=== PATIENT | female | born 1945 | race Caucasian/White ===

== ENCOUNTER → 2022-08-24 06:10 | Outpatient (REF) | payer MEDICARE, MEDICAID, SELFPAY ==
[2022-08-24 09:11] LABS: Hematocrit 33.8 % (37-47); Hemoglobin 10.9 g/dL (12.0-15.0); Mean Corp Hgb Conc 32.2 g/dL (32-36); Mean Corpuscular Hgb 33.1 pg (27.0-32.0); Mean Corpuscular Volume 102.7 fL (81-99); Mean Platelet Vol. 10.5 fl (6.2-12.0); Platelet Count 235 K/mm3 (150-450); RBC Distribution Width CV 13.2 % (11.6-14.6); RBC Distribution Width SD 50.2 fl (35.1-43.9); Red Blood Count 3.29 M/mm3 (4.2-5.4); White Blood Count 8.3 K/mm3 (4.4-11.0)
[2022-08-24 09:55] LABS: ALB/GLOB Ratio 0.7 RATIO (0.9-2.4); AST(SGOT) 16 U/L (15-37); Alanine Aminotransfer ALT/SGPT 19 U/L (13-56); Albumin, Serum 2.9 g/dL (3.2-5.0); Alkaline Phosphatase 70 U/L (45-117); Anion Gap 7 (5-15); BUN 47 mg/dL (7-18); BUN/Creat Ratio 19.7 RATIO (10-20); Calcium,Total 8.9 mg/dL (8.5-10.1); Chloride 107 mmol/L (98-107); Cholesterol 238 mg/dL (200); Creatinine, Serum 2.39 mg/dL (0.55-1.02); EST Glomerular Filtration Rate 21 mL/min (>60); Est Glom Filt Rate - Afr Amer 25 mL/min (>60); Glucose 138 mg/dL (74-106); High Density Lipoprotein 51 mg/dL; Potassium 3.8 mmol/L (3.5-5.1); Protein, Total 6.9 g/dL (6.4-8.2); Sodium Level 139 mmol/L (136-145); Triglycerides 513 mg/dL
[2022-08-24 11:26] LABS: Hemoglobin A1c 7.3 % (3.8-5.6)
== END ==
LOC: OLS.SW 06:10
PROVIDERS: Visit Provider Family Medicine
DX: R79.9 Abnormal finding of blood chemistry, unspecified (principal); Z13.228 Encounter for screening for other metabolic disorders
CPT/HCPCS: 36415; 80053; 80061; 83036; 85027

== ENCOUNTER → 2022-09-05 04:00 | Outpatient (REF) | payer MEDICARE, MEDICAID, SELFPAY ==
[2022-09-05 09:28] LABS: Vitamin D,25 Hydroxy 27.4 ng/mL
== END ==
LOC: OLS.SW 04:00
PROVIDERS: Referring Provider Family Medicine; Visit Provider Family Medicine
DX: F32.A Depression, unspecified (principal); Z79.899 Other long term (current) drug therapy
CPT/HCPCS: 36415; 82306

== ENCOUNTER 2022-11-02 13:04 | Emergency (ER) | payer MEDICARE, MEDICAID, SELFPAY ==
[2022-11-02 13:09] VITALS: BP 162/57; PULSE 60; RESP 13; TEMP 36.6; O2SAT 95; BMI 25.2
--- NOTE | 2022-11-02 13:51 | ED.RN ---
PT REFUSES PO PAIN MEDICATION. STATES UNABLE TO MOVE RT HIP/LEG FOR X-RAY AND WOULD LIKE IV OR IM PAIN MEDICATION
--- NOTE | 2022-11-02 13:56 | EDS_ITS ---
HPI History of Present Illness Chief Complaint: Lower Extremity Injury Narrative Narrative: 77-year-old female presenting with right hip pain. She states she was trying to get into her bed last evening and slipped and fell injuring her right hip. She was unable to get up but was able to scoot around. She states that at baseline she had trouble getting up. She states that prior to this she was in her normal state health. Eating and drinking normally. Making normal urine and stool. No fevers or chills. She denies any headache, lightheadedness, dizziness. She did not have any chest pain or shortness of breath. [facility] Medical History CHF (congestive heart failure) Chronic pain Diabetes HTN (hypertension) Pacemaker Pulmonary fibrosis Allergy/AdvReac Type Severity Reaction Status Date / Time METFORMIN Allergy Other Uncoded 11/02/22 13:09 Family History unable to obtain Social History Smoking Status: Never smoker ROS ROS ED Constitutional Constitutional ED: Denies chills, fever(s) or sweats Eyes Eyes: Denies blurry vision or change in vision ENT ENT ED: Denies ear pain or sore throat Cardiovascular Cardiovascular: Denies chest pain, palpitations or racing heartbeat Respiratory/Chest Respiratory/Chest: Denies cough, dyspnea or sputum Gastrointestinal Gastrointestinal: Denies abdominal pain, constipation, diarrhea, nausea or vomiting Genitourinary Genitourinary ED: Denies dysuria, hematuria or urinary frequency Musculoskeletal Musculoskeletal: Denies arthralgias, myalgias or neck pain Integumentary Denies abscess, Abrasions or rash Neurologic Neurologic: Denies headache(s), paresthesias or weakness Psychiatric Psychiatric: Denies anxiety, depression, suicidal ideation or suicidal thoughts Endocrine Endocrinology: Denies polydipsia or polyuria EXAM Physical Exam Const Vital Signs: 11/02/22 13:09 Temperature 97.9 F Temperature Source Temporal Pulse Rate 60 Respiratory Rate 13 Blood Pressure 162/57 H Blood Pressure Mean 92 Pulse Ox 95 Oxygen Delivery Method Room Air Discharge Plan Triage Chief Complaint: Lower Extremity Injury ED Provider: Jatin Montes Dx/Rx/DC Orders Primary Care Provider: Care Physician,No Primary Referrals: Care Physician,No Primary [Primary Care Provider] -
--- NOTE | 2022-11-02 13:56 | ED.VIS.LOWEX ---
HPI History of Present Illness Chief Complaint: Lower Extremity Injury Narrative Narrative: 77-year-old female presenting with right hip pain. She states she was trying to get into her bed last evening and slipped and fell injuring her right hip. She was unable to get up but was able to scoot around. She states that at baseline she had trouble getting up. She states that prior to this she was in her normal state health. Eating and drinking normally. Making normal urine and stool. No fevers or chills. She denies any headache, lightheadedness, dizziness. She did not have any chest pain or shortness of breath. [facility] Medical History CHF (congestive heart failure) Chronic pain Diabetes HTN (hypertension) Pacemaker Pulmonary fibrosis Home Medications oxycodone-acetaminophen 5 mg-325 mg tablet (Percocet) 1 tab PO Q8H PRN pain 3 days #12 tabs 11/02/22 [Rx Last Taken Unknown] Allergy/AdvReac Type Severity Reaction Status Date / Time METFORMIN Allergy Other Uncoded 11/02/22 13:09 Family History unable to obtain Social History Smoking Status: Never smoker ROS ROS ED Constitutional Constitutional ED: Denies chills, fever(s) or sweats Eyes Eyes: Denies blurry vision or change in vision ENT ENT ED: Denies ear pain or sore throat Cardiovascular Cardiovascular: Denies chest pain, palpitations or racing heartbeat Respiratory/Chest Respiratory/Chest: Denies cough, dyspnea or sputum Gastrointestinal Gastrointestinal: Denies abdominal pain, constipation, diarrhea, nausea or vomiting Genitourinary Genitourinary ED: Denies dysuria, hematuria or urinary frequency Musculoskeletal Musculoskeletal: Denies arthralgias, myalgias or neck pain Integumentary Denies abscess, Abrasions or rash Neurologic Neurologic: Denies headache(s), paresthesias or weakness Psychiatric Psychiatric: Denies anxiety, depression, suicidal ideation or suicidal thoughts Endocrine Endocrinology: Denies polydipsia or polyuria EXAM Physical Exam Const Vital Signs: 11/02/22 13:09 11/02/22 14:30 Temperature 97.9 F Temperature Source Temporal Pulse Rate 60 60 Respiratory Rate 13 16 Blood Pressure 162/57 H 166/62 H Blood Pressure Mean 92 96 Pulse Ox 95 98 Oxygen Delivery Method Room Air Room Air MDM MDM MDM Narrative Medical decision making narrative: 77-year-old female presenting with right hip pain after a fall last evening. She was unable to get up and walk. Initially she was refusing Percocet for pain and wanted a shot of morphine but after discussing this with her she gets hypoxic when she has morphine so since she would not take a pill I gave her 1 dose of IM morphine 1 mg and she tolerated this okay. Obtained an x-ray of the right hip which shows an avulsion fracture of the greater trochanter and proximal femur on my interpretation. Radiology interprets this and agrees. I discussed with Dr. Sands and he states this is nonoperative and recommended try to get the patient ambulate and if she cannot ambulate he recommended admission for placement at a longterm. Patient still refusing to ambulate after 1 mg of morphine so we did start an IV line. Obtained a CBC and BMP which were unremarkable at baseline for her. Patient was given 2 mg of IV morphine and was able to ambulate with a walker at this point. Walking with a walker is her baseline. We will give her a short prescription for Percocet. She was given follow-up with orthopedics. Return precautions were discussed. Impression: 1. Mechanical fall 2. Avulsion fracture right greater trochanter 3. Avulsion fracture right proximal femur Lab Data Attestation: I reviewed the patient's lab results. Labs: Laboratory Results - last 24 hr 11/02/22 15:25 WBC 9.7 RBC 2.92 L Hgb 9.7 L Hct 29.6 L MCV 101.4 H MCH 33.2 H MCHC 32.8 RDW Std Deviation 50.1 H RDW Coeff of Wilma 13.4 Plt Count 217 MPV 10.0 Immature Gran % (Auto) 0.300 Neut % (Auto) 60.5 Lymph % (Auto) 29.7 Atkinson % (Auto) 8.7 Eos % (Auto) 0.4 Baso % (Auto) 0.4 Absolute Neuts (auto) 5.9 Absolute Lymphs (auto) 2.88 Nucleated RBC % 0 Sodium 136 Potassium 3.4 L Chloride 102 Carbon Dioxide 27.0 Anion Gap 7 BUN 45 H Creatinine 2.50 H Estim Creat Clear Calc 16.84 Est GFR (MDRD) Af Amer 24 L Est GFR (MDRD) Non-Af 20 L BUN/Creatinine Ratio 18.0 Glucose 174 H Calcium 8.5 Radiography Diagnostic Testing: Clinical Impression(s) from Imaging Studies Hip/Pelvis X-Ray 11/02/22 14:05 IMPRESSION: Avulsion fracture of the greater trochanter of the proximal femur. Status post right hip replacement. Electronically Signed: Duane Felipe MD at 14:44 EDT , Discharge Plan Triage Chief Complaint: Lower Extremity Injury ED Provider: Jatin Montes Dx/Rx/DC Orders Instructions: ED Fracture, Lower Extremity Prescriptions: New oxycodone-acetaminophen [Percocet] 5-325 mg tablet 1 tab PO Q8H PRN (Reason: pain) 3 Days Qty: 12 0RF Primary Care Provider: Care Physician,No Primary Referrals: Pedro Sands DO [Med Staff - Active Staff] - 3-5 Days Care Physician,No Primary [Primary Care Provider] - Disposition Disposition: Home, Self Care
[2022-11-02] MEDS: Morphine 2 MG/ML Syringe 1 MG IM (13:59)
[2022-11-02] MEDS: Ondansetron ODT 4 MG Tablet PO (14:00)
--- NOTE | 2022-11-02 14:05 | RAD_ITS ---
STUDY: X-RAY - PELVIS AND RIGHT HIP REASON FOR EXAM: Female, 77 years old. Right hip pain following a fall. TECHNIQUE: 3 views of the pelvis and hip. COMPARISON: None. FINDINGS: Moderate amount of fecal material is seen in the colon. There are multiple calcified phleboliths. There is narrowing with cortical sclerosis and osteophyte formation of the sacroiliac joint consistent with degenerative osteoarthritic changes. Normal bilateral superior and inferior pubic rami. There are degenerative changes of the pubic symphysis with articular narrowing and sclerosis. Normal bilateral ischial tuberosities. The patient is status post right total hip replacement. There is evidence of an avulsion fracture of the greater trochanter of the proximal femur. Degenerative changes of the lumbar spine. RAD/HIP, UNI W/ Pelvis 2-3 Views IMPRESSION: Avulsion fracture of the greater trochanter of the proximal femur. Status post right hip replacement. Electronically Signed: Duane Felipe MD at 14:44 EDT ,
[2022-11-02 14:30] VITALS: BP 166/62; PULSE 60; RESP 16; O2SAT 98
[2022-11-02] MEDS: Morphine 2 MG/ML Syringe IV (15:30)
[2022-11-02 15:42] LABS: Absolute Lymphocyte Count 2.88 X10^3/uL (0.83-4.51); Absolute Neutrophil Count 5.9 X10^3/uL (2.0-7.7); Basophil# 0.04 X10^3/uL; Basophil% 0.4 % (0-1); Eosinophil# 0.04 X10^3/uL; Eosinophils% 0.4 % (0-5); Hematocrit 29.6 % (37-47); Hemoglobin 9.7 g/dL (12.0-15.0); Lymphocyte # 2.88 X10^3/ul (0.83-4.51); Lymphocyte % 29.7 % (19-41); Mean Corp Hgb Conc 32.8 g/dL (32-36); Mean Corpuscular Hgb 33.2 pg (27.0-32.0); Mean Corpuscular Volume 101.4 fL (81-99); Monocyte# 0.84 X10^3/uL; Monocyte% 8.7 % (0-10); NRBC Flagged by Analyzer 0 % (0-5); Neutrophil # 5.86 X10^3/uL (2.7-7.7); Neutrophil % 60.5 % (47-70); Platelet Count 217 K/mm3 (150-450); RBC Distribution Width CV 13.4 % (11.6-14.6); RBC Distribution Width SD 50.1 fl (35.1-43.9); Red Blood Count 2.92 M/mm3 (4.2-5.4); White Blood Count 9.7 K/mm3 (4.4-11.0)
[2022-11-02 15:56] LABS: Anion Gap 7 (5-15); BUN 45 mg/dL (7-18); Calcium,Total 8.5 mg/dL (8.5-10.1); Chloride 102 mmol/L (98-107); EST Glomerular Filtration Rate 20 mL/min (>60); Est Glom Filt Rate - Afr Amer 24 mL/min (>60); Estimated Creatinine Clearance 16.84 ml/min; Glucose 174 mg/dL (74-106); Potassium 3.4 mmol/L (3.5-5.1); Sodium Level 136 mmol/L (136-145)
[2022-11-02 16:39] VITALS: BP 135/75; PULSE 88; RESP 16; O2SAT 99
--- NOTE | 2022-11-02 16:41 | NURSING ---
CALLED FOR [facility]. ETA IS 30 MIN
== END 2022-11-02 17:19 | disposition home or self-care (01) ==
PROVIDERS: Emergency Provider Student in an Organized Health Care Education/Training Program; Visit Provider Student in an Organized Health Care Education/Training Program
DX: S72.111A Displaced fracture of greater trochanter of right femur, initial encounter for closed fracture (principal); S72.001A Fracture of unspecified part of neck of right femur, initial encounter for closed fracture; I11.0 Hypertensive heart disease with heart failure; I50.9 Heart failure, unspecified; E11.9 Type 2 diabetes mellitus without complications; W18.39XA Other fall on same level, initial encounter
CPT/HCPCS: 73502; 80048; 85025; 96372; 96374; 99285; A4216

== ENCOUNTER → 2022-11-07 04:46 | Outpatient (REF) | payer MEDICARE, MEDICAID, SELFPAY ==
[2022-11-07 08:26] LABS: Hematocrit 24.5 % (37-47); Hemoglobin 7.7 g/dL (12.0-15.0); Mean Corp Hgb Conc 31.4 g/dL (32-36); Mean Corpuscular Hgb 33.6 pg (27.0-32.0); Mean Platelet Vol. 10.1 fl (6.2-12.0); Platelet Count 274 K/mm3 (150-450); RBC Distribution Width CV 13.7 % (11.6-14.6); RBC Distribution Width SD 53.3 fl (35.1-43.9); Red Blood Count 2.29 M/mm3 (4.2-5.4); White Blood Count 7.8 K/mm3 (4.4-11.0)
[2022-11-07 08:34] LABS: Anion Gap 5 (5-15); BUN 54 mg/dL (7-18); BUN/Creat Ratio 18.9 RATIO (10-20); Calcium,Total 8.4 mg/dL (8.5-10.1); Chloride 101 mmol/L (98-107); Creatinine, Serum 2.86 mg/dL (0.55-1.02); EST Glomerular Filtration Rate 17 mL/min (>60); Est Glom Filt Rate - Afr Amer 21 mL/min (>60); Glucose 107 mg/dL (74-106); Potassium 3.6 mmol/L (3.5-5.1); Sodium Level 136 mmol/L (136-145)
[2022-11-07 08:42] LABS: Scan Indicated on CBC? Y/N NO
== END ==
LOC: OLS.SW 04:46
PROVIDERS: Referring Provider Family Medicine; Visit Provider Family Medicine
DX: E11.22 Type 2 diabetes mellitus with diabetic chronic kidney disease (principal); N18.4 Chronic kidney disease, stage 4 (severe); J84.10 Pulmonary fibrosis, unspecified; I13.0 Hypertensive heart and chronic kidney disease with heart failure and stage 1 through stage 4 chronic kidney disease, or unspecified chronic kidney disease
CPT/HCPCS: 36415; 80048; 85027

== ENCOUNTER → 2022-11-09 05:00 | Outpatient (REF) | payer MEDICARE, MEDICAID, SELFPAY ==
[2022-11-09 09:29] LABS: Hematocrit 24.2 % (37-47); Hemoglobin 7.9 g/dL (12.0-15.0); Mean Corp Hgb Conc 32.6 g/dL (32-36); Mean Corpuscular Hgb 33.8 pg (27.0-32.0); Mean Corpuscular Volume 103.4 fL (81-99); Mean Platelet Vol. 9.9 fl (6.2-12.0); Platelet Count 313 K/mm3 (150-450); RBC Distribution Width CV 14.4 % (11.6-14.6); RBC Distribution Width SD 50.8 fl (35.1-43.9); Red Blood Count 2.34 M/mm3 (4.2-5.4); White Blood Count 7.7 K/mm3 (4.4-11.0)
== END ==
LOC: OLS.SW 05:00
PROVIDERS: Visit Provider Family Medicine
DX: D64.9 Anemia, unspecified (principal)
CPT/HCPCS: 36415; 85027

== ENCOUNTER 2022-12-27 09:10 | Emergency (ER) | payer MEDICARE, MEDICAID, SELFPAY ==
[2022-12-27 09:12] VITALS: BP 165/74; PULSE 64; RESP 18; TEMP 36.4; O2SAT 98; BMI 26.1
[2022-12-27 09:21] VITALS: BMI 26.1
--- NOTE | 2022-12-27 09:22 | RAD_ITS ---
INDICATION: cough weakness EXAMINATION/TECHNIQUE: X-RAY - XR Chest 1 View COMPARISON: FINDINGS: LINES/DEVICES: Status post arthroplasty left shoulder reverse arthroplasty right shoulder. Sequential pacemaker with leads projecting over right atrium and right ventricle. LUNGS: Mild bibasilar fibrosis. MEDIASTINUM AND CARDIOVASCULAR STRUCTURES: Mild cardiomegaly. Moderately tortuous descending aorta. BONES AND SOFT TISSUES: Unremarkable. RAD/Chest 1 View (Portable) IMPRESSION: Mild bibasilar fibrosis. Cardiomegaly. Pacemaker. Status post reverse arthroplasty right shoulder and status post arthroplasty left shoulder. Electronically Signed: Landon Pinon MD at 10:24 EDT ,
--- NOTE | 2022-12-27 09:22 | EKG12_ITS ---
Test Reason : neuro Blood Pressure : / mmHG Vent. Rate : 060 BPM Atrial Rate : 060 BPM P-R Int : 000 ms QRS Dur : 126 ms QT Int : 432 ms P-R-T Axes : -32 -30 119 degrees QTc Int : 432 ms Atrial-paced rhythm Left axis deviation Left ventricular hypertrophy with QRS widening and repolarization abnormality ( R in aVL , Tam pr oduct ) Cannot rule out Septal infarct , age undetermined Abnormal ECG Confirmed by KATLYN EVERETT, RIGO ([id number]), index editor BRAD ABEL ([id number]) on 12/28/2022 10:56:49 AM Referred By: Confirmed By:RIGO POTTS MD
--- NOTE | 2022-12-27 09:23 | EX.ED.DYSGE1 ---
HPI History of Present Illness Chief Complaint: Neuro S/Sx Informant: patient, EMS and SNF (staff report via nursing) Narrative Narrative: 77-year-old female in nursing home facility has been generally weak for the last 2 or 3 days. The day before yesterday, she was attempting to go to the bathroom and the aide/nurse that was helping her according to the patient was not strong enough to do so, she ended up falling down to her buttocks as she was trying to get on the toilet. She denies any injury and she denies hitting her head. She states she was just weak all over. This is partly why she is an inpatient and nursing home, but she has been feeling a little worse since that incident because she states the aide was pulling on her extremities and creating pain, her arms and legs were sore all day yesterday and she slept a lot more than usual, then today when she woke up her mouth was dry she was having trouble talking at that time because of that, staff had said that she was okay at breakfast but when they returned and found her apparently having dysarthria they called EMS to have her evaluated for possible stroke. The patient states she did not have a headache like nursing reported, she did not have any vision disturbance and she did not have any trouble speaking she just needed a sip of water and after that she has been able to do speak without any difficulty. She denies having any symptoms today other than feeling sore all over like she did yesterday from that aide trying to move me. [facility] Medical History Anxiety disorder, unspecified Atherosclerotic heart disease of [place] coronary artery without angina pectoris Atypical atrial flutter CHF (congestive heart failure) Chronic combined systolic (congestive) and diastolic (congestive) heart failure Chronic pain Depression, unspecified Diabetes Displaced fracture of greater trochanter of right femur, subsequent encounter for closed fracture with routine healing Gout, unspecified HTN (hypertension) Hyperlipidemia, unspecified Pacemaker Pulmonary fibrosis Pulmonary fibrosis, unspecified Home Medications albuterol sulfate 90 mcg/actuation breath activated powder inhaler 2 inh inhalation Q4H PRN shortness of breath 12/27/22 [History Last Taken Unknown] allopurinol 100 mg tablet 100 mg PO DAILY 12/27/22 [History Last Taken Unknown] amlodipine 5 mg tablet 5 mg PO DAILY 12/27/22 [History Last Taken Unknown] aspirin 81 mg tablet,delayed release (Adult Low Dose Aspirin) 81 mg PO DAILY 12/27/22 [History Last Taken Unknown] cetirizine 10 mg tablet 10 mg PO DAILY PRN allergy symptoms 12/27/22 [History Last Taken Unknown] empagliflozin 10 mg tablet (Jardiance) 10 mg PO DAILY 12/27/22 [History Last Taken Unknown] furosemide 20 mg tablet 20 mg PO DAILY 12/27/22 [History Last Taken Unknown] hydralazine 50 mg tablet 50 mg PO TID 12/27/22 [History Last Taken Unknown] linagliptin 5 mg tablet (Tradjenta) 5 mg PO DAILY 12/27/22 [History Last Taken Unknown] metoprolol tartrate 25 mg tablet 25 mg PO BID 12/27/22 [History Last Taken Unknown] mirabegron 25 mg tablet,extended release 24 hr (Myrbetriq) 25 mg PO DAILY 12/27/22 [History Last Taken Unknown] multivitamin 1 tab PO DAILY 12/27/22 [History Last Taken Unknown] ondansetron HCl 4 mg tablet 4 mg PO Q8H PRN nausea and vomiting 12/27/22 [History Last Taken Unknown] paroxetine HCl 30 mg tablet 30 mg PO DAILY 12/27/22 [History Last Taken Unknown] potassium chloride 20 mEq tablet,extended release 20 meq PO BID #6 tabs 12/27/22 [Rx Last Taken Unknown] Allergy/AdvReac Type Severity Reaction Status Date / Time morphine Allergy Unknown PT UNSURE Verified 12/27/22 09:15 OF REACTION METFORMIN Allergy Other Uncoded 11/02/22 13:09 Family History unable to obtain Social History Smoking Status: Never smoker ROS ROS ED Constitutional Constitutional ED: Reports body ache(s), fatigue and weakness; Denies chills or fever(s) Eyes Eyes: Denies change in vision or diplopia ENT ENT ED: Denies rhinorrhea or sore throat Cardiovascular Cardiovascular: Denies chest pain or palpitations Respiratory/Chest Respiratory/Chest: Reports cough and other Details: Chronic nonproductive cough due to pulmonary fibrosis unchanged recently ; Denies dyspnea Gastrointestinal Gastrointestinal: Denies abdominal pain, diarrhea, nausea or vomiting Genitourinary Genitourinary ED: Denies dysuria or hematuria Musculoskeletal Musculoskeletal: Denies back pain or neck pain Integumentary Denies abscess or rash Neurologic Neurologic: Denies headache(s), paresthesias or weakness Psychiatric Psychiatric: Denies anxiety or suicidal thoughts EXAM Physical Exam Const Vital Signs: 12/27/22 09:12 Temperature 97.5 F L Temperature Source Temporal Pulse Rate 64 Respiratory Rate 18 Blood Pressure 165/74 H Blood Pressure Mean 104 Pulse Ox 98 Oxygen Delivery Method Room Air Positive well nourished and well developed General Appearance ED: well developed and NAD HEENT Reports moist mucous membranes normocephalic and atraumatic Eyes PERRL and EOMs intact bilaterally Neck full ROM, no lymphadenopathy and supple Resp normal respiratory effort and clear to auscultation bilaterally Cardio regular rate, regular rhythm and no murmurs Rate: Negative for tachycardic GI non-tender and non-distended Auscultation: normoactive bowel sounds Palpation: soft Back/Spine no CVA tenderness General Back: other FROM Extremity normal to inspection General Extremety ED: Negative for edema, pulses abnormal or tenderness General Extremity: Negative for edema or pulses abnormal Neuro oriented x3, CN's II-XII intact bilaterally and no sensory deficits noted Neuro Narrative: Normal speech no dysarthria no aphasia. Generally symmetrically weak but able to hold all 4 extremities off of the bed for the full amount of time. NIHSS 0. Sensorium / Orientation: awake and alert Motor Exam: strength 5/5 throughout Skin no rashes or lesions noted and no wounds MDM MDM MDM Narrative Medical decision making narrative: I do not think stroke/TIA is in the differential here. Patient tells reliable history, blood pressure is a little up in the 160s and has not had her morning blood pressure medications yet. She is DNR comfort care only. Patient states she does not want a work-up for stroke because she is not having 1. I recommended performing testing looking for possible reason for her fatigue and generalized weakness and she was amenable to that. Differential here includes infections including pulmonary, urinary, COVID-19, as well as metabolic disturbances, myocardial infarction, transient dysrhythmias, anemia. Labs are consistent with chronic kidney disease, a little better than her usual, a little more on the dry side with prerenal azotemia worse than usual, and hypokalemia all likely related to her diuretic use without potassium supplementation or a potassium sparing diuretic according to the medication list available right now. No sign of pneumonia or urine infection, I think the low potassium is probably the issue here so I will send her back on a prescription for several days worth, and follow-up so that she can be reevaluated and have her medications reevaluated. When patient first arrived she had to urinate and soaked her bed, so we were unable to get a urine sample but she has had no urinary symptoms and was not able to urinate again while here, so I do not think she needs to be cathed or wait for that since we have an alternative reason for her weakness. Lab Data Attestation: I reviewed the patient's lab results. Labs: Laboratory Results - last 24 hr 12/27/22 09:19 WBC 8.8 RBC 3.34 L Hgb 11.0 L Hct 34.4 L MCV 103.0 H MCH 32.9 H MCHC 32.0 RDW Std Deviation 52.8 H RDW Coeff of Wilma 13.9 Plt Count 305 MPV 9.5 Immature Gran % (Auto) 0.500 Neut % (Auto) 65.3 Lymph % (Auto) 22.6 Carter % (Auto) 7.9 Eos % (Auto) 3.1 Baso % (Auto) 0.6 Absolute Neuts (auto) 5.7 Absolute Lymphs (auto) 1.98 Nucleated RBC % 0 Sodium 135 L Potassium 3.3 L Chloride 98 Carbon Dioxide 29.0 Anion Gap 8 BUN 58 H Creatinine 2.24 H Estim Creat Clear Calc 19.46 Est GFR (MDRD) Af Amer 27 L Est GFR (MDRD) Non-Af 23 L BUN/Creatinine Ratio 25.9 H Glucose 167 H Calcium 8.9 Troponin I High Sens 26 Radiography Chest X-Ray - ED: 1 View, Read by ED Physician, No Acute Disease, Chronic Changes and No Infiltrates Diagnostic Testing: Clinical Impression(s) from Imaging Studies Chest X-Ray 12/27/22 09:22 IMPRESSION: Mild bibasilar fibrosis. Cardiomegaly. Pacemaker. Status post reverse arthroplasty right shoulder and status post arthroplasty left shoulder. Electronically Signed: Landon Pinon MD at 10:24 EDT , Rhythm Strip Rhythm Strip: paced Rate: 60 Ectopy: None EKG Initial EKG: Attestation: I personally reviewed and interpreted this EKG as follows: Interpretation: No Acute Injury Pattern, Paced (Atrial pacing with barely wide QRS and left axis) and Inverted T-Waves (lat) Prior: No Prior Discharge Plan Triage Chief Complaint: Neuro S/Sx ED Provider: Teddy Carranza Dx/Rx/DC Orders Clinical Impression: Hypokalemia due to excessive renal loss of potassium, Mild dehydration, CKD (chronic kidney disease) Instructions: Hypokalemia Dc Prescriptions: New potassium chloride 20 mEq tablet extended release 20 meq PO BID Qty: 6 0RF No Action albuterol sulfate 90 mcg/actuation aerosol powdr breath activated 2 inh inhalation Q4H PRN (Reason: shortness of breath) allopurinol 100 mg tablet 100 mg PO DAILY amlodipine 5 mg tablet 5 mg PO DAILY aspirin [Adult Low Dose Aspirin] 81 mg tablet,delayed release (DR/EC) 81 mg PO DAILY cetirizine 10 mg tablet 10 mg PO DAILY PRN (Reason: allergy symptoms) furosemide 20 mg tablet 20 mg PO DAILY hydralazine 50 mg tablet 50 mg PO TID Jardiance 10 mg tablet 10 mg PO DAILY Tradjenta 5 mg tablet 5 mg PO DAILY metoprolol tartrate 25 mg tablet 25 mg PO BID multivitamin Tablet 1 tab PO DAILY Myrbetriq 25 mg tablet extended release 24 hr 25 mg PO DAILY ondansetron HCl 4 mg tablet 4 mg PO Q8H PRN (Reason: nausea and vomiting) paroxetine HCl 30 mg tablet 30 mg PO DAILY Primary Care Provider: Washington Langford Referrals: Washington Langford MD [Primary Care Provider] - 2 Days (for reevaluation clinically, potassium level, and poss addition of a potassium-sparing diuretic.) Disposition Disposition: Intermediate Facility Discharge Location: [facility]
--- NOTE | 2022-12-27 09:24 | NURSING ---
NO OLD EKGS
[2022-12-27 09:38] LABS: Absolute Lymphocyte Count 1.98 X10^3/uL (0.83-4.51); Absolute Neutrophil Count 5.7 X10^3/uL (2.0-7.7); Basophil# 0.05 X10^3/uL; Basophil% 0.6 % (0-1); Eosinophil# 0.27 X10^3/uL; Eosinophils% 3.1 % (0-5); Hematocrit 34.4 % (37-47); Lymphocyte # 1.98 X10^3/ul (0.83-4.51); Lymphocyte % 22.6 % (19-41); Mean Corpuscular Hgb 32.9 pg (27.0-32.0); Mean Platelet Vol. 9.5 fl (6.2-12.0); Monocyte# 0.69 X10^3/uL; Monocyte% 7.9 % (0-10); NRBC Flagged by Analyzer 0 % (0-5); Neutrophil # 5.74 X10^3/uL (2.7-7.7); Neutrophil % 65.3 % (47-70); Platelet Count 305 K/mm3 (150-450); RBC Distribution Width CV 13.9 % (11.6-14.6); RBC Distribution Width SD 52.8 fl (35.1-43.9); Red Blood Count 3.34 M/mm3 (4.2-5.4); White Blood Count 8.8 K/mm3 (4.4-11.0)
[2022-12-27 09:58] LABS: Anion Gap 8 (5-15); BUN 58 mg/dL (7-18); BUN/Creat Ratio 25.9 RATIO (10-20); Calcium,Total 8.9 mg/dL (8.5-10.1); Chloride 98 mmol/L (98-107); Creatinine, Serum 2.24 mg/dL (0.55-1.02); EST Glomerular Filtration Rate 23 mL/min (>60); Est Glom Filt Rate - Afr Amer 27 mL/min (>60); Estimated Creatinine Clearance 19.46 ml/min; Glucose 167 mg/dL (74-106); Potassium 3.3 mmol/L (3.5-5.1); Sodium Level 135 mmol/L (136-145); Troponin-I HS 26 pg/mL (3.0-54.0)
[2022-12-27] MEDS: 0.9% Normal Saline (1000mL) 1,000 ML 150 ML IV (10:07)
[2022-12-27 11:10] VITALS: BP 166/76; PULSE 64; RESP 14; TEMP 36.4; O2SAT 99
[2022-12-27] MEDS: Potassium Chloride Oral Tablet 20 MEQ 40 MEQ PO (11:46)
--- NOTE | 2022-12-27 11:47 | NURSING ---
CALLED [facility], ETA IS 30 MIN
== END 2022-12-27 13:13 | disposition skilled nursing facility (03) ==
PROVIDERS: Emergency Provider Emergency Medicine; PCP Family Medicine; Visit Provider Emergency Medicine
DX: E86.0 Dehydration (principal); I13.0 Hypertensive heart and chronic kidney disease with heart failure and stage 1 through stage 4 chronic kidney disease, or unspecified chronic kidney disease; I50.42 Chronic combined systolic (congestive) and diastolic (congestive) heart failure; E11.22 Type 2 diabetes mellitus with diabetic chronic kidney disease; E78.5 Hyperlipidemia, unspecified; E87.6 Hypokalemia; N18.9 Chronic kidney disease, unspecified; I25.10 Atherosclerotic heart disease of native coronary artery without angina pectoris; Z79.899 Other long term (current) drug therapy; Z79.82 Long term (current) use of aspirin
CPT/HCPCS: 71045; 80048; 84484; 85025; 87811; 93005; 96360; 96361; 99285

== ENCOUNTER → 2022-12-30 | Outpatient (REF) | payer MEDICARE, MEDICAID, SELFPAY ==
[2022-12-30 09:18] LABS: Anion Gap 9 (5-15); BUN 48 mg/dL (7-18); BUN/Creat Ratio 22.2 RATIO (10-20); Calcium,Total 8.5 mg/dL (8.5-10.1); Chloride 101 mmol/L (98-107); Creatinine, Serum 2.16 mg/dL (0.55-1.02); EST Glomerular Filtration Rate 24 mL/min (>60); Est Glom Filt Rate - Afr Amer 28 mL/min (>60); Glucose 124 mg/dL (74-106); Sodium Level 138 mmol/L (136-145)
== END ==
LOC: OLS.SW 05:00
PROVIDERS: PCP Family Medicine; Visit Provider Family Medicine
DX: E11.22 Type 2 diabetes mellitus with diabetic chronic kidney disease (principal); E78.5 Hyperlipidemia, unspecified; N18.4 Chronic kidney disease, stage 4 (severe)
CPT/HCPCS: 36415; 80048

== ENCOUNTER → 2023-01-02 | Outpatient (REF) | payer MEDICARE, MEDICAID, SELFPAY ==
[2023-01-02 08:32] LABS: Anion Gap 7 (5-15); BUN 51 mg/dL (7-18); BUN/Creat Ratio 22.7 RATIO (10-20); Calcium,Total 8.6 mg/dL (8.5-10.1); Chloride 100 mmol/L (98-107); Creatinine, Serum 2.25 mg/dL (0.55-1.02); EST Glomerular Filtration Rate 22 mL/min (>60); Est Glom Filt Rate - Afr Amer 27 mL/min (>60); Glucose 104 mg/dL (74-106); Potassium 3.5 mmol/L (3.5-5.1); Sodium Level 136 mmol/L (136-145)
== END ==
LOC: OLS.SW 05:00
PROVIDERS: PCP Family Medicine; Visit Provider Family Medicine
DX: E11.22 Type 2 diabetes mellitus with diabetic chronic kidney disease (principal); N18.9 Chronic kidney disease, unspecified
CPT/HCPCS: 36415; 80048

== ENCOUNTER → 2023-01-09 | Outpatient (REF) | payer MEDICARE, MEDICAID, SELFPAY ==
[2023-01-09 08:47] LABS: Anion Gap 8 (5-15); BUN 52 mg/dL (7-18); BUN/Creat Ratio 21.6 RATIO (10-20); Calcium,Total 8.5 mg/dL (8.5-10.1); Chloride 98 mmol/L (98-107); Creatinine, Serum 2.41 mg/dL (0.55-1.02); EST Glomerular Filtration Rate 21 mL/min (>60); Est Glom Filt Rate - Afr Amer 25 mL/min (>60); Glucose 111 mg/dL (74-106); Potassium 3.5 mmol/L (3.5-5.1); Sodium Level 135 mmol/L (136-145)
== END ==
LOC: OLS.SW 05:20
PROVIDERS: PCP Family Medicine; Visit Provider Family Medicine
DX: I13.0 Hypertensive heart and chronic kidney disease with heart failure and stage 1 through stage 4 chronic kidney disease, or unspecified chronic kidney disease (principal); E11.22 Type 2 diabetes mellitus with diabetic chronic kidney disease; N18.9 Chronic kidney disease, unspecified; I50.42 Chronic combined systolic (congestive) and diastolic (congestive) heart failure
CPT/HCPCS: 36415; 80048

== ENCOUNTER → 2023-01-16 | Outpatient (REF) | payer MEDICARE, MEDICAID, SELFPAY ==
[2023-01-16 08:37] LABS: Anion Gap 7 (5-15); BUN 57 mg/dL (7-18); Calcium,Total 8.7 mg/dL (8.5-10.1); Chloride 96 mmol/L (98-107); Creatinine, Serum 2.19 mg/dL (0.55-1.02); EST Glomerular Filtration Rate 23 mL/min (>60); Est Glom Filt Rate - Afr Amer 28 mL/min (>60); Glucose 126 mg/dL (74-106); Potassium 3.4 mmol/L (3.5-5.1); Sodium Level 134 mmol/L (136-145)
== END ==
LOC: OLS.SW 04:00
PROVIDERS: PCP Family Medicine; Referring Provider Family Medicine; Visit Provider Family Medicine
DX: I50.9 Heart failure, unspecified (principal); E11.9 Type 2 diabetes mellitus without complications
CPT/HCPCS: 36415; 80048

== ENCOUNTER → 2023-01-23 | Outpatient (REF) | payer MEDICARE, MEDICAID, SELFPAY ==
[2023-01-23 09:53] LABS: Anion Gap 9 (5-15); BUN 76 mg/dL (7-18); BUN/Creat Ratio 32.2 RATIO (10-20); Calcium,Total 8.6 mg/dL (8.5-10.1); Chloride 99 mmol/L (98-107); Creatinine, Serum 2.36 mg/dL (0.55-1.02); EST Glomerular Filtration Rate 21 mL/min (>60); Est Glom Filt Rate - Afr Amer 26 mL/min (>60); Glucose 116 mg/dL (74-106); Potassium 4.2 mmol/L (3.5-5.1); Sodium Level 132 mmol/L (136-145)
== END ==
LOC: OLS.SW 05:00
PROVIDERS: PCP Family Medicine; Visit Provider Internal Medicine
DX: E11.22 Type 2 diabetes mellitus with diabetic chronic kidney disease (principal); N18.4 Chronic kidney disease, stage 4 (severe)
CPT/HCPCS: 36415; 80048

== ENCOUNTER → 2023-02-06 04:00 | Outpatient (REF) | payer MEDICARE, MEDICAID, SELFPAY ==
[2023-02-06 08:14] LABS: Hematocrit 29.1 % (37-47); Hemoglobin 9.4 g/dL (12.0-15.0); Mean Corp Hgb Conc 32.3 g/dL (32-36); Mean Corpuscular Hgb 32.5 pg (27.0-32.0); Mean Corpuscular Volume 100.7 fL (81-99); Mean Platelet Vol. 10.4 fl (6.2-12.0); Platelet Count 264 K/mm3 (150-450); RBC Distribution Width CV 13.4 % (11.6-14.6); RBC Distribution Width SD 49.9 fl (35.1-43.9); Red Blood Count 2.89 M/mm3 (4.2-5.4)
[2023-02-06 08:41] LABS: Hemoglobin A1c 6.2 % (3.8-5.6)
[2023-02-06 08:54] LABS: ALB/GLOB Ratio 0.6 RATIO (0.9-2.4); AST(SGOT) 24 U/L (15-37); Alanine Aminotransfer ALT/SGPT 19 U/L (13-56); Albumin, Serum 2.6 g/dL (3.2-5.0); Alkaline Phosphatase 77 U/L (45-117); Anion Gap 13 (5-15); BUN 67 mg/dL (7-18); Calcium,Total 8.3 mg/dL (8.5-10.1); Chloride 99 mmol/L (98-107); Cholesterol 144 mg/dL (200); Creatinine, Serum 2.23 mg/dL (0.55-1.02); EST Glomerular Filtration Rate 23 mL/min (>60); Est Glom Filt Rate - Afr Amer 27 mL/min (>60); Glucose 118 mg/dL (74-106); High Density Lipoprotein 66 mg/dL; Potassium 3.4 mmol/L (3.5-5.1); Protein, Total 6.6 g/dL (6.4-8.2); Sodium Level 136 mmol/L (136-145); Triglycerides 108 mg/dL; Very Low Density Lipoprotein 22 mg/dL (5-40)
== END ==
LOC: OLS.SW 04:00
PROVIDERS: PCP Family Medicine; Visit Provider Family Medicine
DX: I50.9 Heart failure, unspecified (principal); E11.9 Type 2 diabetes mellitus without complications
CPT/HCPCS: 36415; 80053; 80061; 83036; 85027

== ENCOUNTER 2023-02-28 12:15 | Emergency (ER) | payer MEDICARE, MEDICAID, SELFPAY ==
[2023-02-28 12:16] VITALS: BP 159/58; PULSE 60; RESP 18; TEMP 36.4; O2SAT 96; BMI 25.2
--- NOTE | 2023-02-28 12:52 | EX.ED.DYSGE1 ---
HPI History of Present Illness Chief Complaint: Weakness Informant: patient Narrative Narrative: Patient is a 77-year-old female with history of depression, overactive bladder, hypertension, pulmonary hypertension, diabetes mellitus and heart failure presenting after an episode of unresponsiveness. She is presenting from [facility]. Patient states is nothing wrong with her and she was just tired and she does not want to be here. Per EMS report patient had unresponsive episode which is what triggered 911 to be called today. Her sisters in the waiting room and states that this is more behavioral she knew that she was coming to visit today. Patient notes that she has been a bit more thirsty lately and's been having increased odor to her urine as well as frequency. Denies any dysuria. Denies any fever or chills. Denies any chest pain, shortness of breath, acute cough, abdominal pain or change in bowel habits. Denies any swelling of her legs. No other complaints at this time. Not sure the last time she had blood work. 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 Atypical atrial flutter CHF (congestive heart failure) Chronic combined systolic (congestive) and diastolic (congestive) heart failure Chronic pain Depression, unspecified Diabetes Displaced fracture of greater trochanter of right femur, subsequent encounter for closed fracture with routine healing Gout, unspecified HTN (hypertension) Hyperlipidemia, unspecified Pacemaker Pulmonary fibrosis Pulmonary fibrosis, unspecified Home Medications albuterol sulfate 90 mcg/actuation breath activated powder inhaler 2 inh inhalation Q4H PRN shortness of breath 12/27/22 [History Last Taken Unknown] allopurinol 100 mg tablet 100 mg PO DAILY 12/27/22 [History Last Taken Unknown] amlodipine 5 mg tablet 5 mg PO DAILY 12/27/22 [History Last Taken Unknown] aspirin 81 mg tablet,delayed release (Adult Low Dose Aspirin) 81 mg PO DAILY 12/27/22 [History Last Taken Unknown] cetirizine 10 mg tablet 10 mg PO DAILY PRN allergy symptoms 12/27/22 [History Last Taken Unknown] empagliflozin 10 mg tablet (Jardiance) 10 mg PO DAILY 12/27/22 [History Last Taken Unknown] furosemide 20 mg tablet 20 mg PO DAILY 12/27/22 [History Last Taken Unknown] hydralazine 50 mg tablet 50 mg PO TID 12/27/22 [History Last Taken Unknown] linagliptin 5 mg tablet (Tradjenta) 5 mg PO DAILY 12/27/22 [History Last Taken Unknown] metoprolol tartrate 25 mg tablet 25 mg PO BID 12/27/22 [History Last Taken Unknown] mirabegron 25 mg tablet,extended release 24 hr (Myrbetriq) 25 mg PO DAILY 12/27/22 [History Last Taken Unknown] multivitamin 1 tab PO DAILY 12/27/22 [History Last Taken Unknown] ondansetron HCl 4 mg tablet 4 mg PO Q8H PRN nausea and vomiting 12/27/22 [History Last Taken Unknown] paroxetine HCl 30 mg tablet 30 mg PO DAILY 12/27/22 [History Last Taken Unknown] potassium chloride 20 mEq tablet,extended release 20 meq PO BID #6 tabs 12/27/22 [Rx Last Taken Unknown] aspirin 325 mg tablet,delayed release 325 mg PO DAILY #7 tabs 02/28/23 [Rx Last Taken Unknown] cephalexin 250 mg capsule 250 mg PO BID #14 caps 02/28/23 [Rx Last Taken Unknown] Allergy/AdvReac Type Severity Reaction Status Date / Time morphine Allergy Unknown PT UNSURE Verified 02/28/23 12:16 OF REACTION METFORMIN Allergy Other Uncoded 11/02/22 13:09 Social History Smoking Status: Never smoker ROS ROS ED Constitutional Constitutional ED: Reports other Details: Reported episode of mental status change however patient denies this ; Denies chills or fever(s) Eyes Eyes: Denies change in vision ENT ENT ED: Reports other Details: Positive dry mouth ; Denies rhinorrhea Cardiovascular Cardiovascular: Denies chest pain Respiratory/Chest Respiratory/Chest: Denies cough Gastrointestinal Gastrointestinal: Denies abdominal pain, nausea or vomiting Genitourinary Genitourinary ED: Reports urinary frequency and other Details: Odor to urine ; Denies dysuria or hematuria Musculoskeletal Musculoskeletal: Denies arthralgias or myalgias Integumentary Denies rash Neurologic Neurologic: Denies headache(s), paresthesias or weakness Psychiatric Psychiatric: Reports depression; Denies anxiety Hematologic/Lymphatic Hematologic/Lymphatic: Denies easy bleeding or easy bruising EXAM Physical Exam Const Vital Signs: 02/28/23 12:16 02/28/23 12:16 02/28/23 15:27 Temperature 97.6 F L Temperature Source Temporal Pulse Rate 60 Respiratory Rate 18 16 Respiratory Effort Normal Respiratory Pattern Normal Blood Pressure 159/58 H 156/82 H Blood Pressure Mean 91 106 Pulse Ox 96 94 Oxygen Delivery Method Room Air Room Air Positive well nourished and well developed General Appearance ED: well developed and NAD HEENT Reports moist mucous membranes Negative for trauma Eyes PERRL and EOMs intact bilaterally Neck supple and no JVD Chest Wall inspection of chest normal and palpation of chest normal Resp normal respiratory effort and clear to auscultation bilaterally Cardio regular rate, regular rhythm and no murmurs GI normal to inspection, nondistended, normoactive bowel sounds and non-tender Extremity normal to inspection General Extremety ED: Negative for edema or tenderness General Extremity: Negative for edema Neuro oriented x3, CN's II-XII intact bilaterally and no sensory deficits noted Neuro Narrative: NIH equals 0 Sensorium / Orientation: alert Motor Exam: strength 5/5 throughout; Negative for general weakness Psych mental status grossly normal Skin no rashes or lesions noted and no wounds MDM MDM MDM Narrative Medical decision making narrative: Patient is evaluated for reported episode of mental status change. Nursing staff was finally able to get report and apparently patient was noted to be staring off with nonreactive pupils and with a dropped her arm and just fall. She would seem to go in and out of responsiveness. Staff was unsure if she is may be having staring seizures. She not receiving responsive to pain. The first episode lasted for approximately 3 minutes and the second episode lasted for about 30 seconds. Vital signs were normal during this and her blood sugar was 288. No seizure activity was reported. When I asked the patient about this nursing reports she states she remembers it happening she just did not feel like responding. I am not sure what to make of that. I will add on a head CT as well as basic labs. Patient is a mild anemia on her CBC with a hemoglobin of 10.7. This is at her baseline and slightly improved from 1 month ago. CMP shows chronic mild hyponatremia, CKD and mild hyperglycemia. She is a normal anion gap. Urinalysis obtained through straight catheterization does not show any elevation of specific gravity or ketones consistent with dehydration but does show 100 leukocyte esterase with 10-25 white blood cells and 2+ bacteria. Suspect she has a urinary tract infection. CT of the brain shows decreased attenuation of the right cerebral hemisphere and subacute infarct cannot be ruled out. Patient is informed of this findings. She is offered admission for further stroke evaluation. Patient states she does not think she had a stroke and she has no symptoms. She states that she does not want to come to the hospital. She is DNR CC. Did discuss the risk of permanent disability if she has a larger stroke and she understands this. This time patient does have capacity to make this decision and refuse admission. I did speak with on-call for her PCP, Dr. Liriano. Informed him of these findings. Will start the patient on full dose aspirin (he is currently on 81 mg aspirin) and she can be worked up further outpatient. Given the patient's age and CODE STATUS and this is reasonable especially as I am not entirely certain if she truly had a stroke versus encephalopathy associated with UTI. She does not meet criteria for sepsis however I do not think she requires IV antibiotics at this time. Patient be given first dose of antibiotics (Keflex) in the emergency room. Given return precautions. Discharged back to [facility] Lab Data Attestation: I reviewed the patient's lab results. Labs: Laboratory Results - last 24 hr 02/28/23 02/28/23 13:17 15:16 WBC 10.0 RBC 3.25 L Hgb 10.7 L Hct 32.4 L MCV 99.7 H MCH 32.9 H MCHC 33.0 RDW Std Deviation 48.8 H RDW Coeff of Wilma 13.4 Plt Count 266 MPV 9.6 Immature Gran % (Auto) 0.300 Neut % (Auto) 50.4 Lymph % (Auto) 37.0 [place] % (Auto) 9.7 Eos % (Auto) 2.2 Baso % (Auto) 0.4 Absolute Neuts (auto) 5.0 Absolute Lymphs (auto) 3.69 Nucleated RBC % 0 Sodium 133 L Potassium 3.9 Chloride 95 L Carbon Dioxide 30.0 Anion Gap 8 BUN 75 H Creatinine 2.68 H Estim Creat Clear Calc 15.71 Est GFR (MDRD) Af Amer 22 L Est GFR (MDRD) Non-Af 18 L BUN/Creatinine Ratio 28.0 H Glucose 214 H Calcium 8.3 L Urine Color Yellow Urine Clarity Sl. Cloudy Urine pH 5.0 Ur Specific [place] 1.010 Urine Protein 30 H Urine Glucose (UA) 250 H Urine Ketones Negative Urine Occult Blood Negative Urine Nitrite Negative Urine Bilirubin Negative Urine Urobilinogen Normal Ur Leukocyte Esterase 100 H Urine RBC 0-5 SEEN Urine WBC 10-25 SEEN Ur Squamous Epith Cells 0 SEEN Urine Bacteria 2+ Urine Mucus 0 SEEN Radiography Diagnostic Testing: Clinical Impression(s) from Imaging Studies Brain CT 02/28/23 13:35 IMPRESSION: Chronic involutional changes of the brain. Decreased attenuation in the right cerebellar hemisphere. Subacute infarction BE ruled out. Electronically Signed: Duane Felipe MD at 14:11 EST , Rhythm Strip Rhythm Strip: Sinus Rhythm Rate: 61 Ectopy: None EKG Initial EKG: Attestation: I personally reviewed and interpreted this EKG as follows: Comments: Atrial paced rhythm at a rate of 61 bpm with prolonged AV conduction Left axis deviation LVH with QRS widening and repolarization abnormalities No significant change compared to prior EKG Management Discussion w/another healthcare provider: PCP Discharge Plan Triage Chief Complaint: Weakness ED Provider: Marcela Rachel Dx/Rx/DC Orders Clinical Impression: Urinary tract infection, Transient alteration of awareness, Abnormal brain CT Instructions: ED ALOC, ED Cystitis Female Adult Prescriptions: New cephalexin 250 mg capsule 250 mg PO BID Qty: 14 0RF aspirin 325 mg tablet,delayed release (DR/EC) 325 mg PO DAILY Qty: 7 0RF Held aspirin [Adult Low Dose Aspirin] 81 mg tablet,delayed release (DR/EC) 81 mg PO DAILY Hold Instructions: increased to 325 for 1 week No Action albuterol sulfate 90 mcg/actuation aerosol powdr breath activated 2 inh inhalation Q4H PRN (Reason: shortness of breath) allopurinol 100 mg tablet 100 mg PO DAILY amlodipine 5 mg tablet 5 mg PO DAILY cetirizine 10 mg tablet 10 mg PO DAILY PRN (Reason: allergy symptoms) furosemide 20 mg tablet 20 mg PO DAILY hydralazine 50 mg tablet 50 mg PO TID Jardiance 10 mg tablet 10 mg PO DAILY Tradjenta 5 mg tablet 5 mg PO DAILY metoprolol tartrate 25 mg tablet 25 mg PO BID multivitamin Tablet 1 tab PO DAILY Myrbetriq 25 mg tablet extended release 24 hr 25 mg PO DAILY ondansetron HCl 4 mg tablet 4 mg PO Q8H PRN (Reason: nausea and vomiting) paroxetine HCl 30 mg tablet 30 mg PO DAILY potassium chloride 20 mEq tablet extended release 20 meq PO BID Qty: 6 0RF Primary Care Provider: Washington Langford Referrals: Washington Langford MD [Primary Care Provider] - Activity Restrictions/Additional Instructions: You do have a urinary tract infection. Will place on renally dosed course of antibiotics. In addition your CT showed possible changes to the right eye of the brain which could be consistent with a subacute stroke. It is not entirely certain. Please follow-up with this outpatient as she did not want to be admitted for further inpatient workup at this time. In the meantime we will switch you to full dose aspirin daily instead of baby aspirin. Disposition Disposition: Group Home Facility Discharge Location: [facility]
[2023-02-28 13:24] LABS: Absolute Lymphocyte Count 3.69 X10^3/uL (0.83-4.51); Basophil# 0.04 X10^3/uL; Basophil% 0.4 % (0-1); Eosinophil# 0.22 X10^3/uL; Eosinophils% 2.2 % (0-5); Hematocrit 32.4 % (37-47); Hemoglobin 10.7 g/dL (12.0-15.0); Lymphocyte # 3.69 X10^3/ul (0.83-4.51); Mean Corpuscular Hgb 32.9 pg (27.0-32.0); Mean Corpuscular Volume 99.7 fL (81-99); Mean Platelet Vol. 9.6 fl (6.2-12.0); Monocyte# 0.97 X10^3/uL; Monocyte% 9.7 % (0-10); NRBC Flagged by Analyzer 0 % (0-5); Neutrophil # 5.02 X10^3/uL (2.7-7.7); Neutrophil % 50.4 % (47-70); Platelet Count 266 K/mm3 (150-450); RBC Distribution Width CV 13.4 % (11.6-14.6); RBC Distribution Width SD 48.8 fl (35.1-43.9); Red Blood Count 3.25 M/mm3 (4.2-5.4)
--- NOTE | 2023-02-28 13:35 | CT_ITS ---
STUDY: CT BRAIN WITHOUT CONTRAST REASON FOR EXAM: Female, 77 years old. Mental status change RADIATION DOSAGE (If Supplied By Facility): CTDIvol = ( 47.06 ) mGy, DLP = ( 855.03 ) mGycm TECHNIQUE: Transaxial CT imaging of the brain was performed without administration of intravenous contrast material. Individualized dose optimization techniques were used for this CT. COMPARISON: No relevant priors. FINDINGS: Normal soft tissue structures. Normal calvarium. There is mild cerebral atrophy with widening of the extra-axial spaces and ventricular dilatation. There are areas of decreased attenuation within the white matter tracts of the supratentorial brain, consistent with microvascular disease changes. Normal basal ganglia and thalami. Normal brainstem. Decreased attenuation in the right cerebellar hemisphere. Subacute infarction BE ruled out. There is no intracranial hemorrhage. There are no findings of an acute ischemic infarction. Normal visualized paranasal sinuses. CT/Brain/Head without Contrast IMPRESSION: Chronic involutional changes of the brain. Decreased attenuation in the right cerebellar hemisphere. Subacute infarction BE ruled out. Electronically Signed: Duane Felipe MD at 14:11 EST ,
[2023-02-28 13:37] LABS: Anion Gap 8 (5-15); BUN 75 mg/dL (7-18); Calcium,Total 8.3 mg/dL (8.5-10.1); Chloride 95 mmol/L (98-107); Creatinine, Serum 2.68 mg/dL (0.55-1.02); EST Glomerular Filtration Rate 18 mL/min (>60); Est Glom Filt Rate - Afr Amer 22 mL/min (>60); Estimated Creatinine Clearance 15.71 ml/min; Glucose 214 mg/dL (74-106); Potassium 3.9 mmol/L (3.5-5.1); Sodium Level 133 mmol/L (136-145)
[2023-02-28 15:23] LABS: Mucous, Urine 0 SEEN /hpf (<or=2+); Squamous Epithelial Cells - UA 0 SEEN /hpf (5-10)
[2023-02-28] MEDS: Aspirin 81 MG TAB.CHEW 162 MG PO (15:25)
[2023-02-28 15:27] VITALS: BP 156/82; RESP 16; O2SAT 94
[2023-02-28 15:33] LABS: Color, Urine Yellow (Yellow); Glucose, Dipstick 250 mg/dl (Normal); Ketone-Dipstick Negative (Negative); Leukocyte Esterase-Dipstick 100 /ul (Negative); Nitrite-Dipstick Negative (Negative); Occult Blood-Urine Negative /ul (Negative); Protein-Dipstick 30 mg/dl (Negative); Urine Bilirubin Dipstick Negative (Negative); Urine Clarity Sl. Cloudy (Clear); Urine Urobilinogen Normal (Normal)
--- NOTE | 2023-02-28 15:47 | EKG12_ITS ---
Test Reason : UNRESPONSIVE Blood Pressure : / mmHG Vent. Rate : 061 BPM Atrial Rate : 061 BPM P-R Int : 224 ms QRS Dur : 134 ms QT Int : 440 ms P-R-T Axes : 000 -42 107 degrees QTc Int : 442 ms Atrial-paced rhythm with prolonged AV conduction Left axis deviation Left ventricular hypertrophy with QRS widening and repolarization abnormality ( R in aVL , Tam pr oduct , Romhilt-Flannery ) Cannot rule out Septal infarct (cited on or before 27-DEC-2022) Abnormal ECG Confirmed by AGUSTIN EVERETT, LUKAS ([id number]), book or script editor CRISTOBAL ERNANDEZ ([id number]) on 03/06/2023 7:04:52 AM Referred By: JEM Confirmed By:TREASURE VELEZ MD
[2023-02-28 15:51] LABS: Bacteria 2+ /hpf (None Seen); Red Blood Cells-Urine 0-5 SEEN /hpf (0-5); White Blood Cells 10-25 SEEN /hpf (0-5)
[2023-02-28] MEDS: Cephalexin 250 MG Capsule 500 MG PO (16:12)
--- NOTE | 2023-02-28 16:14 | NURSING ---
CALLED [facility], ETA IS 2 HRS
[2023-02-28 16:17] VITALS: BP 169/56; PULSE 63; RESP 15; O2SAT 98
[2023-02-28 17:00] VITALS: PULSE 63; RESP 18; O2SAT 94
--- NOTE | 2023-02-28 19:31 | ED.RN ---
Report called to Lela at [facility].
== END 2023-02-28 19:31 | disposition skilled nursing facility (03) ==
PROVIDERS: Emergency Provider Emergency Medicine; PCP Family Medicine; Visit Provider Emergency Medicine
DX: N39.0 Urinary tract infection, site not specified (principal); I50.42 Chronic combined systolic (congestive) and diastolic (congestive) heart failure; I27.20 Pulmonary hypertension, unspecified; I11.0 Hypertensive heart disease with heart failure; E11.9 Type 2 diabetes mellitus without complications; E78.5 Hyperlipidemia, unspecified; I25.10 Atherosclerotic heart disease of native coronary artery without angina pectoris; R90.89 Other abnormal findings on diagnostic imaging of central nervous system; Z95.0 Presence of cardiac pacemaker; M10.9 Gout, unspecified; F32.A Depression, unspecified; Z79.899 Other long term (current) drug therapy; R41.82 Altered mental status, unspecified
CPT/HCPCS: 70450; 80048; 81001; 85025; 87086; 87088; 87186; 93005; 99285; J7030; P9612

== ENCOUNTER → 2023-04-04 | Outpatient (REF) | payer MEDICARE, MEDICAID, SELFPAY ==
[2023-04-04 10:08] LABS: Hematocrit 29.5 % (37-47); Mean Corp Hgb Conc 33.9 g/dL (32-36); Mean Corpuscular Hgb 34.6 pg (27.0-32.0); Mean Corpuscular Volume 102.1 fL (81-99); Mean Platelet Vol. 10.6 fl (6.2-12.0); Platelet Count 237 K/mm3 (150-450); RBC Distribution Width CV 13.5 % (11.6-14.6); Red Blood Count 2.89 M/mm3 (4.2-5.4); White Blood Count 8.8 K/mm3 (4.4-11.0)
[2023-04-04 10:26] LABS: ALB/GLOB Ratio 0.8 RATIO (0.9-2.4); AST(SGOT) 19 U/L (15-37); Alanine Aminotransfer ALT/SGPT 17 U/L (13-56); Alkaline Phosphatase 73 U/L (45-117); Anion Gap 9 (5-15); BUN 94 mg/dL (7-18); Chloride 100 mmol/L (98-107); Cholesterol 162 mg/dL (200); Creatinine, Serum 2.61 mg/dL (0.55-1.02); EST Glomerular Filtration Rate 19 mL/min (>60); Est Glom Filt Rate - Afr Amer 23 mL/min (>60); Globulin 3.7 g/dL (2.2-4.2); Glucose 157 mg/dL (74-106); High Density Lipoprotein 58 mg/dL; Potassium 3.8 mmol/L (3.5-5.1); Protein, Total 6.7 g/dL (6.4-8.2); Sodium Level 135 mmol/L (136-145); Triglycerides 287 mg/dL; Very Low Density Lipoprotein 57 mg/dL (5-40)
[2023-04-04 10:39] LABS: Vitamin D,25 Hydroxy 64.3 ng/mL
[2023-04-04 11:19] LABS: Hemoglobin A1c 6.6 % (3.8-5.6)
== END ==
LOC: OLS.SW 05:55
PROVIDERS: PCP Family Medicine; Visit Provider Family Medicine
DX: E78.5 Hyperlipidemia, unspecified (principal); J84.10 Pulmonary fibrosis, unspecified; M10.9 Gout, unspecified; I13.0 Hypertensive heart and chronic kidney disease with heart failure and stage 1 through stage 4 chronic kidney disease, or unspecified chronic kidney disease; I50.42 Chronic combined systolic (congestive) and diastolic (congestive) heart failure; E11.22 Type 2 diabetes mellitus with diabetic chronic kidney disease; N18.4 Chronic kidney disease, stage 4 (severe); E55.9 Vitamin D deficiency, unspecified; I25.10 Atherosclerotic heart disease of native coronary artery without angina pectoris
CPT/HCPCS: 36415; 80053; 80061; 82306; 83036; 85027

== ENCOUNTER → 2023-04-12 | Outpatient (REF) | payer MEDICARE, MEDICAID, SELFPAY ==
[2023-04-12 07:35] LABS: Hematocrit 30.1 % (37-47); Hemoglobin 9.6 g/dL (12.0-15.0); Mean Corp Hgb Conc 31.9 g/dL (32-36); Mean Corpuscular Hgb 32.7 pg (27.0-32.0); Mean Corpuscular Volume 102.4 fL (81-99); Platelet Count 230 K/mm3 (150-450); RBC Distribution Width CV 13.3 % (11.6-14.6); RBC Distribution Width SD 50.4 fl (35.1-43.9); Red Blood Count 2.94 M/mm3 (4.2-5.4)
[2023-04-12 11:33] LABS: ALB/GLOB Ratio 0.7 RATIO (0.9-2.4); AST(SGOT) 16 U/L (15-37); Alanine Aminotransfer ALT/SGPT 16 U/L (13-56); Albumin, Serum 2.7 g/dL (3.2-5.0); Alkaline Phosphatase 75 U/L (45-117); Anion Gap 4 (5-15); BUN 85 mg/dL (7-18); BUN/Creat Ratio 32.8 RATIO (10-20); Calcium,Total 8.9 mg/dL (8.5-10.1); Chloride 99 mmol/L (98-107); Creatinine, Serum 2.59 mg/dL (0.55-1.02); EST Glomerular Filtration Rate 19 mL/min (>60); Est Glom Filt Rate - Afr Amer 23 mL/min (>60); Globulin 3.8 g/dL (2.2-4.2); Glucose 148 mg/dL (74-106); Potassium 3.8 mmol/L (3.5-5.1); Prealbumin 26.5 mg/dL (20.0-40.0); Protein, Total 6.5 g/dL (6.4-8.2); Sodium Level 131 mmol/L (136-145)
== END ==
LOC: OLS.SW 05:00
PROVIDERS: PCP Family Medicine; Visit Provider Family Medicine
DX: N18.9 Chronic kidney disease, unspecified (principal)
CPT/HCPCS: 36415; 80053; 84134; 85027

== ENCOUNTER 2023-05-10 14:18 | Emergency (ER) | payer MEDICARE, MEDICAID, SELFPAY ==
[2023-05-10 14:19] VITALS: BP 171/90; PULSE 75; RESP 18; TEMP 36.6; O2SAT 95; BMI 27.0
[2023-05-10] MEDS: 0.9% Normal Saline (500mL Bag) 500 ML 1000 ML IV (14:44)
--- NOTE | 2023-05-10 14:44 | EX.ED.DYSGE1 ---
HPI History of Present Illness Chief Complaint: Confusion Informant: patient Onset/Context/Timing Onset: Today Narrative Narrative: 77-year-old female history of CAD, atrial flutter, CHF, pacemaker, pulmonary fibrosis and diabetes. Reportedly sent in from [facility] due to mental status change. Patient states she is completely coherent she states she heard people in the hallway talking that they are going to do her hand and that they were going to do it tonight. She denies any recent illness. She denies any fall or head trauma. She denies any headache. She denies any fever. She denies any nausea, vomiting or diarrhea. She also states that she has a bruise on her arm because the staff got mad because she would not let them see her private area. Prior similar symptoms: Yes Recent Illness/Hospitalization: No [facility] Medical History Anxiety disorder, unspecified Atherosclerotic heart disease of [place] coronary artery without angina pectoris Atypical atrial flutter CHF (congestive heart failure) Chronic combined systolic (congestive) and diastolic (congestive) heart failure Chronic pain Depression, unspecified Diabetes Displaced fracture of greater trochanter of right femur, subsequent encounter for closed fracture with routine healing Gout, unspecified HTN (hypertension) Hyperlipidemia, unspecified Pacemaker Pulmonary fibrosis Pulmonary fibrosis, unspecified Home Medications albuterol sulfate 90 mcg/actuation breath activated powder inhaler 2 inh inhalation Q4H PRN shortness of breath 12/27/22 [History Last Taken Unknown] allopurinol 100 mg tablet 100 mg PO DAILY 12/27/22 [History Last Taken Unknown] amlodipine 5 mg tablet 5 mg PO DAILY 12/27/22 [History Last Taken Unknown] aspirin 81 mg tablet,delayed release (Adult Low Dose Aspirin) 81 mg PO DAILY 12/27/22 [History Last Taken Unknown] cetirizine 10 mg tablet 10 mg PO DAILY PRN allergy symptoms 12/27/22 [History Last Taken Unknown] empagliflozin 10 mg tablet (Jardiance) 10 mg PO DAILY 12/27/22 [History Last Taken Unknown] furosemide 20 mg tablet 20 mg PO DAILY 12/27/22 [History Last Taken Unknown] hydralazine 50 mg tablet 50 mg PO TID 12/27/22 [History Last Taken Unknown] linagliptin 5 mg tablet (Tradjenta) 5 mg PO DAILY 12/27/22 [History Last Taken Unknown] metoprolol tartrate 25 mg tablet 25 mg PO BID 12/27/22 [History Last Taken Unknown] mirabegron 25 mg tablet,extended release 24 hr (Myrbetriq) 25 mg PO DAILY 12/27/22 [History Last Taken Unknown] multivitamin 1 tab PO DAILY 12/27/22 [History Last Taken Unknown] ondansetron HCl 4 mg tablet 4 mg PO Q8H PRN nausea and vomiting 12/27/22 [History Last Taken Unknown] paroxetine HCl 30 mg tablet 30 mg PO DAILY 12/27/22 [History Last Taken Unknown] potassium chloride 20 mEq tablet,extended release 20 meq PO BID #6 tabs 12/27/22 [Rx Last Taken Unknown] aspirin 325 mg tablet,delayed release 325 mg PO DAILY #7 tabs 02/28/23 [Rx Last Taken Unknown] cephalexin 250 mg capsule 250 mg PO BID #14 caps 02/28/23 [Rx Last Taken Unknown] Allergy/AdvReac Type Severity Reaction Status Date / Time metformin Allergy Mild OTHER Verified 05/10/23 14:19 morphine Allergy Unknown PT UNSURE Verified 05/10/23 14:19 OF REACTION Social History Smoking Status: Never smoker ROS ROS ED ROS Narrative Patient denies any recent illness. Review of Systems ROS Unobtainable: Denies due to encephalopathy Constitutional Constitutional ED: Denies fever(s) Eyes Eyes: Denies blurry vision ENT ENT ED: Reports none Cardiovascular Cardiovascular: Reports none Respiratory/Chest Respiratory/Chest: Reports none Gastrointestinal Gastrointestinal: Reports none; Denies abdominal pain Genitourinary Genitourinary ED: Reports none Musculoskeletal Musculoskeletal: Reports none Integumentary Reports none Neurologic Neurologic: Reports none Psychiatric Psychiatric: Reports none Endocrine Endocrinology: Reports none Hematologic/Lymphatic Hematologic/Lymphatic: Reports none Allergic/Immunologic Allergic/Immunologic ED: Reports none EXAM Physical Exam Narrative Exam Narrative: Well-appearing 77-year-old female. Vital signs are stable afebrile. Pulse ox 95% on room air no hypoxia. H EENT exam pupils round react light. Extra motions are intact. Mytrex membranes. No facial droop. Normal speech. No trauma. Neck nontender no lymphadenopathy. Lungs clear to auscultation bilaterally. Heart regular rate about 75 no murmur. Chest wall nontender. Abdomen soft nontender. Back nontender. No signs of trauma. Moving all 4 extremities. Nontender no edema. No deformity. 5 out of 5 pbx inspector strength. Dorsi and plantarflexion intact. Neurologically she is awake and alert. She knows the month and the year. She knows that she is in the hospital. When given multiple choice she can pick the president's name. She is answering questions and following commands. No focal motor deficits. Const Vital Signs: 05/10/23 14:19 05/10/23 16:20 Temperature 98 F 98.4 F Temperature Source Oral Oral Pulse Rate 75 66 Respiratory Rate 18 18 Blood Pressure 171/90 H 218/80 H Blood Pressure Mean 117 126 Pulse Ox 95 97 Oxygen Delivery Method Room Air Room Air Positive well nourished, well developed, alert, oriented x3, no apparent distress, average body habitus and no limitations; Negative for cachectic, contractures or unkempt General Appearance ED: active, cooperative, comfortable, well kempt and well developed; Negative for unkempt, cachectic or contractures Nutritional Appearance: Negative for cachectic HEENT Reports normocephalic and head/scalp atraumatic normocephalic and normal to inspection Face and Sinus: normal facial exam Nose: external nose normal and no nasal discharge External Ear: external ears normal Mouth ED: Yes oral and palatal mucosa normal Mouth: oral and palatal mucosa normal Throat: posterior oropharynx normal Eyes PERRL, EOMs intact bilaterally, conjunctivae normal and no scleral icterus General Eye ED: Yes normal appearance of both eyes Periorbital: periorbital findings normal Eyelid: eyelids normal Conjunctiva: conjunctiva normal Sclera: sclera normal Cornea: cornea normal Pupil: PERRL Neck full ROM, No nuchal rigidity, no lymphadenopathy, supple, no meningeal signs, no JVD and No nodes General: normal visual inspection Lymph Lymphatic: no lymphadenopathy noted and no lymphedema noted; Negative for lymphedema, lymphadenopathy or other Chest Wall inspection of chest normal and palpation of chest normal Resp normal respiratory effort, normal air movement, no retractions, no use of accessory muscles and clear to auscultation bilaterally Effort and Inspection: able to speak in complete sentences Auscultation: clear to auscultation bilaterally Cardio regular rate, regular rhythm, S1 normal heart sound, S2 normal heart sound, no murmurs, no rub, no gallops, no clicks and no JVD; Negative for diaphoretic Rate: regular rate Rhythm: regular rhythm GI normal to inspection, nondistended, normoactive bowel sounds, soft to palpation, non-tender, non-distended and no masses Auscultation: normoactive bowel sounds Palpation: soft; Negative for firm or tender Back/Spine no CVA tenderness, normal ROM, normal to inspection, thoracic and lumbar spine normal to inspection and no thoracic nor lumbar tenderness Extremity normal to inspection, full ROM, no joint enlargement, no clubbing, cyanosis or edema, no calf tenderness and no pedal edema Neuro oriented x3, CN's II-XII intact bilaterally, moves all extremities and no focal motor deficits Sensorium / Orientation: awake, alert, oriented to person, oriented to place and oriented to time; Negative for orientation impaired, confused, lethargic or stuporous Meningeal Signs: no meningeal signs Speech: speech normal Motor Exam: strength 5/5 throughout Psych mental status grossly normal, thought process normal, cooperative, affect normal, speech normal and activity/motor behavior normal Appearance: grossly normal; Negative for unkempt Attitude: calm, engaged, No paranoid, No withdrawn, No bizarre, No uncooperative, No evasive, No guarded, No belligerent, No agitated, No aggressive and No hostile Activity / Motor Behavior: appropriate eye contact Speech: normal speech Mood & Affect: euthymic mood Thought Process: normal thought process Thought Content: normal thought content Insight: insight good Judgement: judgement good Skin no rashes or lesions noted, no wounds, no jaundice, no petechiae and no mottling General Skin Exam: no breakdown Lesions: no lesions Rashes: no rashes Trauma: no lacerations or abrasions Wounds: Negative for amputation Hair: normal Nails: normal MDM MDM MDM Narrative Medical decision making narrative: 77-year-old female who is paranoid of staff at the [facility] care facility. Exam otherwise benign. She is awake alert. She can answer questions and follow commands. I spoke to the staff at [facility]. I also spoke to Dr. Washington Langford's nurse practitioner at 4:30 PM. We went over the patient's test. Patient received IV fluids. Treated with IV Rocephin for possible UTI. Urine culture will be sent. She will be discharged back to the extended care facility with the IV in place. Will continue IV fluids and if they want to give her p.o. versus IV antibiotics. They are comfortable with her being sent back. History & Record Review Discussion w/independent historian: Patient Additional record(s) reviewed:: Prior inpatient record, Prior outpatient record, Prior ED visit and Prior labs Lab Data Attestation: I reviewed the patient's lab results. Lab results narrative: CBC shows white count 1.4. H&H 12.3 and 36. Platelets 321. Electrolytes show a gap of 11. BUN 46 creatinine 2.13 she has a history of chronic kidney disease and these are consistent with her prior labs. Glucose 146. Liver enzymes unremarkable. Urinalysis shows no nitrates. No red cells. 5-10 white cells and 3+ bacteria. Culture will be sent. Labs: Laboratory Results - last 24 hr 05/10/23 05/10/23 14:45 15:00 WBC 11.4 H RBC 3.73 L Hgb 12.3 Hct 36.9 L MCV 98.9 MCH 33.0 H MCHC 33.3 RDW Std Deviation 46.9 H RDW Coeff of Wilma 13.0 Plt Count 321 MPV 9.8 Immature Gran % (Auto) 0.300 Neut % (Auto) 56.1 Lymph % (Auto) 34.7 Wheeler % (Auto) 7.7 Eos % (Auto) 0.7 Baso % (Auto) 0.5 Absolute Neuts (auto) 6.4 Absolute Lymphs (auto) 3.97 Nucleated RBC % 0 Sodium 136 Potassium 3.8 Chloride 102 Carbon Dioxide 23.0 Anion Gap 11 BUN 46 H Creatinine 2.13 H Estim Creat Clear Calc 18.01 Est GFR (MDRD) Af Amer 29 L Est GFR (MDRD) Non-Af 24 L BUN/Creatinine Ratio 21.6 H Glucose 146 H Calcium 9.4 Total Bilirubin 0.50 AST 26 ALT 14 Alkaline Phosphatase 88 Total Protein 7.2 Albumin 3.1 L Globulin 4.1 Albumin/Globulin Ratio 0.8 L Urine Color Yellow Urine Clarity Sl. Cloudy Urine pH 5.0 Ur Specific [place] 1.020 Urine Protein 500 H Urine Glucose (UA) 250 H Urine Ketones 50 H Urine Occult Blood 25 H Urine Nitrite Negative Urine Bilirubin Negative Urine Urobilinogen Normal Ur Leukocyte Esterase 25 H Urine RBC 0-5 SEEN Urine WBC 5-10 SEEN Ur Squamous Epith Cells 0 SEEN Urine Bacteria 3+ Urine Mucus 0 SEEN Discharge Plan Triage Chief Complaint: Confusion Other Complaint: Complaint ED Provider: Shon Funk Dx/Rx/DC Orders Clinical Impression: Urinary tract infection, Acute paranoia, Chronic kidney disease, History of atrial flutter, History of diabetes mellitus Prescriptions: No Action albuterol sulfate 90 mcg/actuation aerosol powdr breath activated 2 inh inhalation Q4H PRN (Reason: shortness of breath) allopurinol 100 mg tablet 100 mg PO DAILY amlodipine 5 mg tablet 5 mg PO DAILY aspirin [Adult Low Dose Aspirin] 81 mg tablet,delayed release (DR/EC) 81 mg PO DAILY Hold Instructions: increased to 325 for 1 week cetirizine 10 mg tablet 10 mg PO DAILY PRN (Reason: allergy symptoms) furosemide 20 mg tablet 20 mg PO DAILY hydralazine 50 mg tablet 50 mg PO TID Jardiance 10 mg tablet 10 mg PO DAILY Tradjenta 5 mg tablet 5 mg PO DAILY metoprolol tartrate 25 mg tablet 25 mg PO BID multivitamin Tablet 1 tab PO DAILY Myrbetriq 25 mg tablet extended release 24 hr 25 mg PO DAILY ondansetron HCl 4 mg tablet 4 mg PO Q8H PRN (Reason: nausea and vomiting) paroxetine HCl 30 mg tablet 30 mg PO DAILY potassium chloride 20 mEq tablet extended release 20 meq PO BID Qty: 6 0RF cephalexin 250 mg capsule 250 mg PO BID Qty: 14 0RF aspirin 325 mg tablet,delayed release (DR/EC) 325 mg PO DAILY Qty: 7 0RF Primary Care Provider: Washington Langford Referrals: Washington Langford MD [Primary Care Provider] -
[2023-05-10 15:10] LABS: Mucous, Urine 0 SEEN /hpf (<or=2+); Squamous Epithelial Cells - UA 0 SEEN /hpf (5-10)
[2023-05-10 15:16] LABS: ALB/GLOB Ratio 0.8 RATIO (0.9-2.4); AST(SGOT) 26 U/L (15-37); Absolute Lymphocyte Count 3.97 X10^3/uL (0.83-4.51); Absolute Neutrophil Count 6.4 X10^3/uL (2.0-7.7); Alanine Aminotransfer ALT/SGPT 14 U/L (13-56); Albumin, Serum 3.1 g/dL (3.2-5.0); Alkaline Phosphatase 88 U/L (45-117); Anion Gap 11 (5-15); BUN 46 mg/dL (7-18); BUN/Creat Ratio 21.6 RATIO (10-20); Basophil# 0.06 X10^3/uL; Basophil% 0.5 % (0-1); Calcium,Total 9.4 mg/dL (8.5-10.1); Chloride 102 mmol/L (98-107); Creatinine, Serum 2.13 mg/dL (0.55-1.02); EST Glomerular Filtration Rate 24 mL/min (>60); Eosinophil# 0.08 X10^3/uL; Eosinophils% 0.7 % (0-5); Est Glom Filt Rate - Afr Amer 29 mL/min (>60); Estimated Creatinine Clearance 18.01 ml/min; Globulin 4.1 g/dL (2.2-4.2); Glucose 146 mg/dL (74-106); Hematocrit 36.9 % (37-47); Hemoglobin 12.3 g/dL (12.0-15.0); Lymphocyte # 3.97 X10^3/ul (0.83-4.51); Lymphocyte % 34.7 % (19-41); Mean Corp Hgb Conc 33.3 g/dL (32-36); Mean Corpuscular Volume 98.9 fL (81-99); Mean Platelet Vol. 9.8 fl (6.2-12.0); Monocyte# 0.88 X10^3/uL; Monocyte% 7.7 % (0-10); NRBC Flagged by Analyzer 0 % (0-5); Neutrophil % 56.1 % (47-70); Platelet Count 321 K/mm3 (150-450); Potassium 3.8 mmol/L (3.5-5.1); Protein, Total 7.2 g/dL (6.4-8.2); RBC Distribution Width SD 46.9 fl (35.1-43.9); Red Blood Count 3.73 M/mm3 (4.2-5.4); Sodium Level 136 mmol/L (136-145); White Blood Count 11.4 K/mm3 (4.4-11.0)
[2023-05-10 15:44] LABS: Color, Urine Yellow (Yellow); Glucose, Dipstick 250 mg/dl (Normal); Ketone-Dipstick 50 mg/dl (Negative); Leukocyte Esterase-Dipstick 25 /ul (Negative); Nitrite-Dipstick Negative (Negative); Occult Blood-Urine 25 /ul (Negative); Protein-Dipstick 500 mg/dl (Negative); Urine Bilirubin Dipstick Negative (Negative); Urine Clarity Sl. Cloudy (Clear); Urine Urobilinogen Normal (Normal)
[2023-05-10 16:03] LABS: Bacteria 3+ /hpf (None Seen); Red Blood Cells-Urine 0-5 SEEN /hpf (0-5); White Blood Cells 5-10 SEEN /hpf (0-5)
[2023-05-10 16:20] VITALS: BP 218/80; PULSE 66; RESP 18; TEMP 36.9; O2SAT 97
[2023-05-10] MEDS: Ceftriaxone 1 GM/50 ML BAG IV (16:46)
[2023-05-10] MEDS: 0.9% Normal Saline (1000mL) 1,000 ML 999 ML IV (16:47)
--- NOTE | 2023-05-10 17:23 | ED.RN ---
spoke with Althea palma [facility] for report.
[2023-05-10 17:26] VITALS: BP 212/83; PULSE 70; RESP 18; TEMP 36.9; O2SAT 97
--- NOTE | 2023-05-10 17:27 | ED.RN ---
RN at [facility] states INES Painter aware of pt being at [facility] ED.
--- NOTE | 2023-05-10 17:35 | ED.RN ---
[facility] CALLED, ETA [id number]
[2023-05-10] MEDS: hydrALAZINE 20 MG/ML Vial 10 MG IV (17:39)
[2023-05-10 18:50] VITALS: BP 188/61
[2023-05-10 19:11] VITALS: BP 139/62
[2023-05-10 19:27] VITALS: BP 139/62; PULSE 79; RESP 16; O2SAT 95
== END 2023-05-10 19:30 | disposition home or self-care (01) ==
PROVIDERS: Emergency Provider Emergency Medicine; PCP Family Medicine; Visit Provider Emergency Medicine
DX: R41.0 Disorientation, unspecified (principal); I13.0 Hypertensive heart and chronic kidney disease with heart failure and stage 1 through stage 4 chronic kidney disease, or unspecified chronic kidney disease; F22 Delusional disorders; E11.22 Type 2 diabetes mellitus with diabetic chronic kidney disease; I48.92 Unspecified atrial flutter; N39.0 Urinary tract infection, site not specified; I25.10 Atherosclerotic heart disease of native coronary artery without angina pectoris; N18.9 Chronic kidney disease, unspecified; Z95.0 Presence of cardiac pacemaker; Z79.899 Other long term (current) drug therapy; M10.9 Gout, unspecified; E78.5 Hyperlipidemia, unspecified; Z79.82 Long term (current) use of aspirin
CPT/HCPCS: 80053; 81001; 85025; 87077; 87086; 87088; 87631; 96365; 96375; 99285; J7030; J7040; P9612; A4216